=== PATIENT | female | born 1975 | race American Indian/Alaskan Native ===

== ENCOUNTER 2018-12-04 15:13 | Emergency (ER) | payer OTHER, MEDICARE ==
[2018-12-04 15:30] VITALS: BP 107/60
--- NOTE | 2018-12-04 18:02 | XRay Report ---
PROCEDURE: XR SPINE LUMBOSACRAL 2-3V TECHNIQUE: AP, lateral and lumbosacral spot views of the lumbar spine. HISTORY: back pain COMPARISONS: None. FINDINGS: There are 6 lumbar type vertebral bodies. Normal alignment. No compression fracture. There is disc space narrowing and anterior osteophyte formations at L5-6 and L6-S1. The paravertebral soft tissues are normal. IMPRESSION: Degenerative changes of the lower lumbar spine. This document is electronically signed by Olga Winston., December 04 2018 06:00:10 PM ET
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
== END 2018-12-04 18:19 | disposition home or self-care (01) ==
LOC: ED 15:13
DX: S39.012A Strain of muscle, fascia and tendon of lower back, initial encounter (principal); V49.59XA Passenger injured in collision with other motor vehicles in traffic accident, initial encounter; Y93.89 Activity, other specified; Y92.410 Unspecified street and highway as the place of occurrence of the external cause; Y99.8 Other external cause status
CPT/HCPCS: 72100

== ENCOUNTER 2019-08-18 12:42 | Outpatient (CLI) | payer MEDICARE ==
--- NOTE | 2019-08-18 15:19 | XRay Report ---
CHEST 2 VIEWS INDICATION: COUGH. COMPARISON: 06/25/2017 FINDINGS: Support devices: None. Heart: Within normal limits. Pulmonary vasculature: Normal. Lungs/pleura: No acute air space or interstitial disease. No pneumothorax. Additional findings: Degenerative change in the thoracic spine. IMPRESSION: 1. No acute findings. Signer Name: Bernard Hood MD Signed: 08/18/2019 3:15 PM Workstation Name: [id number]
== END 2019-08-18 12:43 | disposition home or self-care (01) ==
LOC: XRAY 12:42
PROVIDERS: ATTEND Internal Medicine
DX: R05 Cough (principal)
CPT/HCPCS: 71046